=== PATIENT | male | born 1945 | race Two or more races ===

== ENCOUNTER 2018-06-11 08:45 | Observation (INO) | payer BC ==
[~2018-06-11] VITALS: Ht 172.7 cm; Wt 129.2 kg
[2018-06-11] VITALS (34 sets, daily range): BP systolic 71–129; BP diastolic 48–86; PULSE 84–98; RESP 15–29; Ht 172.7 cm; Wt 129.2 kg
[2018-06-11] MEDS: LACTATED RINGER'S 1,000 ML IV SCH ×2 (04:00→22:02)
[~2018-06-11 08:45] MED LIST: ACETAMINOPHEN 500 MG TAB PO ONE; CEFAZOLIN 1 GM/50 ML (PMX) 50 ML IVPB ONE; DEXAMETHASONE 4 MG/ML 1 ML INJ IV ONE; EPHEDrine 25 MG/5 ML SYG ONE; HIP PAIN COCKTAIL VANCO INJ SCH; LACTATED RINGER'S 1,000 ML IV* SCH; LANSOPRAZOLE 30 MG CAP PO ONE; ONDANSETRON 4 MG INJ IV ONE; PHENYLephrine 10 MG INJ ONE; TRANEXAMIC ACID 1GM/100ML(PMX) 100 ML INTRA-OP X1 IVPB ONE; TRANEXAMIC ACID 1GM/100ML(PMX) 100 ML PRE-OP X1 IVPB ONE; oxyCODONE (CR) 10 MG TAB [oxyCONTIN] PO ONE
[2018-06-11] MEDS ORDERED: SITA100T11 PO (09:22)
[2018-06-11] MEDS ORDERED: METF100010 PO (09:22)
[2018-06-11] MEDS ORDERED: EMPA25TA PO (09:22)
[2018-06-11] MEDS ORDERED: TRAM50TA PO (09:23)
[2018-06-11] MEDS ORDERED: APIX5TAB PO (09:23)
[2018-06-11] MEDS ORDERED: GLYB5TAB3 PO (09:24)
[2018-06-11] MEDS ORDERED: METO-448 PO (09:24)
[2018-06-11] MEDS ORDERED: ACETAMINOPHEN 1000MG/100ML IV 100 ML IVPB ONE (10:00)
--- NOTE | 2018-06-11 10:09 | HPN ---
Date/Time of Note Date/Time of Note DATE: 06/11/18 TIME: 10:09 Interval H&P Admission Note Pt. seen H&P reviewed: No system changes ZULEMA WATERS MD Jun 11, 2018 10:09
[2018-06-11] MEDS ORDERED: POLYMYXIN B 500000 UNIT INJ ONE (10:24)
--- NOTE | 2018-06-11 10:25 | PREAC ---
Date/Time of Note Date/Time of Note DATE: 06/11/18 TIME: 10:24 Anesthesia Eval and Record Evaluation Time Pre-Procedure Interview DATE: 06/11/18 TIME: 10:24 Age 72 Sex male NPO: 8 hrs Preoperative diagnosis R knee pain OA Planned procedure R knee replacement Past Medical History Past Medical History: Includes Cardio: HTN, Dyslipidemia Endo: Diabetes GI: Morbid obesity Surgery & Anesthesia Issues No known issue Meds Anticoagulation: No Beta Jeffry within 24 hr: No Reason Beta Jeffry not given: Pt. not on B-Jeffry Reported Medications Glyburide* (Glyburide*) 5 Mg Tablet, 10 MG PO BID, #60 TAB 06/11/18 Metoprolol Tartrate* (Lopressor*) 25 Mg Tab, 25 MG PO BID, #60 TAB 06/11/18 Apixaban* (Eliquis*) 5 Mg Tablet, 5 MG PO BID, TAB 06/11/18 Tramadol Hcl* (Ultram*) 50 Mg Tablet, 50 MG PO BID PRN for PAIN, TAB 06/11/18 Empagliflozin (Jardiance) 25 Mg Tablet, 25 MG PO DAILY, TAB 06/11/18 Sitagliptin* (Januvia*) 100 Mg Tablet, 100 MG PO DAILY, #30 TAB 06/11/18 Metformin Hcl* (Metformin Hcl*) 1,000 Mg Tablet, 1000 MG PO WITH BREAKFAST DINNE, #60 TAB 06/11/18 Current Medications Lactated Ringer's 1,000 ml @ 125 mls/hr Q8H IV* ; Start 06/11/18 at 06:00; Stop 06/11/18 at 13:59 Ropivacaine/ Morphine Sulfate/ Clonidine/ Epinephrine/ Ketorolac Tromethamine/ Vancomycin HCl/ Sodium Chloride INTRA-OP INJ ; Start 06/11/18 at 06:00 Meds reviewed: Yes Allergies Coded Allergies: No Known Drug Allergies (Unverified Allergy, Unknown, 06/11/18) Allergies Reviewed: Yes Labs/Studies Labs Reviewed: Reviewed by anesthesiologist test: N/A Studies: ECG Pre-procedure Exam Last vitals Vital Signs Date Temp Pulse Resp B/P (MAP) Pulse Ox O2 O2 Flow FiO2 Time Delivery Rate 06/11/18 97.8 94 16 129/79 98 Room Air 10:05 (96) Airway: Adequate mouth opening, Adequate thyromental dist Mallampati: Mallampati II Teeth: Normal Lung: Normal Heart: Normal ASA Physical Status ASA physical status: 3 Emergency: None Planned Anesthetic General/MAC: ETT Neuraxial: Spinal Planned Pain Management Sub-arachniod narcotics Pre-operative Attestations Prior to commencing anesthesia and surgery, the patient was re-evaluated, there was verification of: *The patient's identity *The results of appropriate recent lab work and preoperative vital signs *The above evaluation not changing prior to induction *Anesthetic plan, risk benefits, alternative and complications discussed with patient/family; questions answered; patient/family understands, accepts and wishes to proceed. KHALIDA SHEN Jun 11, 2018 10:25
[2018-06-11] MEDS ORDERED: ONDANSETRON 4 MG INJ IV PRN ×2 (10:30→17:00)
[2018-06-11] MEDS ORDERED: ALBUTEROL 0.083% (NEB) 2.5 MG/3 ML AMP HHN PRN (10:30)
[2018-06-11] MEDS ORDERED: DIPHENHYDRAMINE 50 MG INJ IV PRN (10:30)
[2018-06-11] MEDS ORDERED: FENTAnyl 50 MCG/ML VIAL IV PRN ×2 (10:30)
[2018-06-11] MEDS ORDERED: MEPERIDINE 25 MG INJ IV PRN (10:30)
[2018-06-11] MEDS ORDERED: METOCLOPRAMIDE 10 MG INJ IV PRN (10:30)
[2018-06-11] MEDS ORDERED: HYDROmorphONE 1 MG/5 ML IV SYRINGE IV PRN ×2 (10:30)
[2018-06-11] MEDS ORDERED: morphine SULFATE/PF (10 MG/10 ML) INJ ONE (10:32)
[2018-06-11] MEDS ORDERED: MIDAZOLAM 1 MG/ML 2 ML INJ ONE (10:32)
--- NOTE | 2018-06-11 12:11 | OPR ---
Date/Time of Note Date/Time of Note DATE: 06/11/18 TIME: 12:07 Operative Report Free Text/Dictation The patient was taken to the operative room. After induction of spinal anesthesia, he became hypotensive requiring pressors. He was in atrial fibrillation, with bigeminy. After additional pressors, he became hypotensive again. At this time it was decided by anesthesia, that he is not optimized medically. The case was canceled. Patient will be admitted, and taken to the telemetry unit for observation. I will consult the hospitalist, as well as cardiology. I spoke to the patient's family including both of his sons. ZULEMA WATERS MD Jun 11, 2018 12:11
--- NOTE | 2018-06-11 13:46 | PAC ---
Date/Time of Note Date/Time of Note DATE: 06/11/18 TIME: 13:41 Post-Anesthesia Notes Post-Anesthesia Note Last documented vital signs Vital Signs Date Temp Pulse Resp B/P (MAP) Pulse Ox O2 O2 Flow FiO2 Time Delivery Rate 06/11/18 84 21 99/60 (73) 95 Room Air 13:06 06/11/18 98.0 11:38 Activity: WNL Respiratory function: WNL Cardiovascular function: WNL Mental status: Baseline Pain reasonably controlled: Yes Hydration appropriate: Yes Nausea/Vomiting absent: Yes Comments Pt is currently doing well in PACU in sinus rythym. Surgery cancelled due to unstable Paroxysmal afib (newly diagnosed) with hypotension following a low dose spinal anesthetic requiring pressors.. Pt states that he was diagnosed by his primary or uniform maker 2 weeks ago but there is no record of this in his medical history by either the primary or uniform maker. Not known to what extent his afib is controlled. Plan will be for patient to be admitted and see a uniform maker in house before proceeding further. KHALIDA SHEN Jun 11, 2018 13:46
[2018-06-11] MEDS: NS + KCL 20 MEQ 1,000 ML IV SCH (16:44)
--- NOTE | 2018-06-11 16:53 | CONS ---
Assessment/Plan Assessment/Plan Assessment/Plan (Daily) 1. Hypotension likely secondary to arrhythmia Patient went into A. fib with bigeminy, currently stable Continue home Eliquis but hold beta-leesa secondary to hypotension Plan is for stress test this evening Possible DC home tomorrow if stable with plans for surgery in 2 weeks 2. Right knee arthritis Patient was scheduled for surgery today but will be postponed for 2 weeks 3. Diabetes Continue home metformin, sliding scale 4. Morbid obesity Lifestyle changes Consultation Date/Type/Reason Admit Date/Time Jun 11, 2018 at 08:45 Date/Time of Note DATE: 06/11/18 TIME: 16:49 Hx of Present Illness Patient is a 72-year-old male with history of morbid obesity, diabetes, recent diagnosis of A. fib and arthritis who was scheduled for an elective right knee replacement. Patient was up to have surgery when he was noted to become hypotensive requiring pressors. Patient was in A. fib with bigeminy and surgery was canceled. Tiana Aggarwal has already consulted cardiology and stress test is planned. Patient denies any dizziness or chest pain at this time. Patient reports recent diagnosis of A. fib 2 weeks ago that was found during preop evaluation the patient denies any history of palpitations or chest discomfort. Constitutional: no complaints, improved Eyes: no complaints ENT: no complaints Respiratory: no complaints Cardiovascular: no complaints Gastrointestinal: no complaints Genitourinary: no complaints Musculoskeletal: no complaints Skin: no complaints Neurologic: no complaints Endocrine: no complaints Lymphatic: no complaints Psychological: no complaints, nl mood/affect Immunologic: no complaints Past Medical History Diabetes, obesity, arthritis, A. fib Home Meds Reported Medications Glyburide* (Glyburide*) 5 Mg Tablet, 10 MG PO BID, #60 TAB 06/11/18 Metoprolol Tartrate* (Lopressor*) 25 Mg Tab, 25 MG PO BID, #60 TAB 06/11/18 Apixaban* (Eliquis*) 5 Mg Tablet, 5 MG PO BID, TAB 06/11/18 Tramadol Hcl* (Ultram*) 50 Mg Tablet, 50 MG PO BID PRN for PAIN, TAB 06/11/18 Empagliflozin (Jardiance) 25 Mg Tablet, 25 MG PO DAILY, TAB 06/11/18 Sitagliptin* (Januvia*) 100 Mg Tablet, 100 MG PO DAILY, #30 TAB 06/11/18 Metformin Hcl* (Metformin Hcl*) 1,000 Mg Tablet, 1000 MG PO WITH BREAKFAST DINNE, #60 TAB 06/11/18 Medications Current Medications Ropivacaine/ Morphine Sulfate/ Clonidine/ Epinephrine/ Ketorolac Tromethamine/ Vancomycin HCl/ Sodium Chloride INTRA-OP INJ ; Start 06/11/18 at 06:00 Lactated Ringer's 1,000 ml @ 100 mls/hr Q10H IV ; Start 06/11/18 at 12:02 Apixaban (Eliquis) 2.5 mg BID PO ; Start 06/11/18 at 21:00 Potassium Chloride/Sodium Chloride 1,000 ml @ 100 mls/hr Q10H IV ; Start 06/11/18 at 16:44; Status UNV IV Flush (NS 3 ml) 3 ml PER PROTOCOL IV ; Start 06/11/18 at 17:00; Status UNV Ondansetron HCl (Zofran Inj) 4 mg Q6H PRN IV NAUSEA/VOMITING; Start 06/11/18 at 17:00; Status UNV Acetaminophen (Tylenol Tab) 650 mg Q6H PRN PO .PAIN 1-3 OR TEMP; Start 06/11/18 at 17:00; Status UNV Acetaminophen/ Hydrocodone Bitart (Sonoita (5/325)) 1 tab Q6H PRN PO .MOD PAIN 4- 6; Start 06/11/18 at 17:00; Status UNV Morphine Sulfate (morphine) 2 mg Q4H PRN IV .SEVERE PAIN 7-10; Start 06/11/18 at 17:00; Status UNV Docusate Sodium (Colace) 100 mg Q12H PRN PO .CONSTIPATION; Start 06/11/18 at 17:00; Status UNV Zolpidem Tartrate (Ambien) 5 mg QHS PRN PO .INSOMNIA; Start 06/11/18 at 17:00; Status UNV Allergies: Coded Allergies: No Known Drug Allergies (Unverified Allergy, Unknown, 06/11/18) Past Surgical History Past Surgical Hx: no surgical history Family History Significant Family History: no pertinent family hx Social History Alcohol Use: rarely Smoking Status: Never smoker Drug Use: none Exam/Review of Systems Exam Vitals Vital Signs Date Temp Pulse Resp B/P (MAP) Pulse Ox O2 O2 Flow FiO2 Time Delivery Rate 06/11/18 86 19 100/66 94 Room Air 14:33 (77) 06/11/18 98.0 11:38 Constitutional: alert, oriented Respiratory: clear to auscultation Cardiovascular: irregular rhythm Gastrointestinal: soft; No distended Musculoskeletal: nl extremities to inspection Results Results 24hrs Laboratory Tests Test 06/11/18 09:33 06/11/18 13:04 Bedside Glucose 176 127 Medications Medication Current Medications Ropivacaine/ Morphine Sulfate/ Clonidine/ Epinephrine/ Ketorolac Tromethamine/ Vancomycin HCl/ Sodium Chloride INTRA-OP INJ ; Start 06/11/18 at 06:00 Lactated Ringer's 1,000 ml @ 100 mls/hr Q10H IV ; Start 06/11/18 at 12:02 Apixaban (Eliquis) 2.5 mg BID PO ; Start 06/11/18 at 21:00 Potassium Chloride/Sodium Chloride 1,000 ml @ 100 mls/hr Q10H IV ; Start 06/11/18 at 16:44; Status UNV IV Flush (NS 3 ml) 3 ml PER PROTOCOL IV ; Start 06/11/18 at 17:00; Status UNV Ondansetron HCl (Zofran Inj) 4 mg Q6H PRN IV NAUSEA/VOMITING; Start 06/11/18 at 17:00; Status UNV Acetaminophen (Tylenol Tab) 650 mg Q6H PRN PO .PAIN 1-3 OR TEMP; Start 06/11/18 at 17:00; Status UNV Acetaminophen/ Hydrocodone Bitart (Sonoita (5/325)) 1 tab Q6H PRN PO .MOD PAIN 4- 6; Start 06/11/18 at 17:00; Status UNV Morphine Sulfate (morphine) 2 mg Q4H PRN IV .SEVERE PAIN 7-10; Start 06/11/18 at 17:00; Status UNV Docusate Sodium (Colace) 100 mg Q12H PRN PO .CONSTIPATION; Start 06/11/18 at 17:00; Status UNV Zolpidem Tartrate (Ambien) 5 mg QHS PRN PO .INSOMNIA; Start 06/11/18 at 17:00; Status UNV SULAIMAN MOJICA Jun 11, 2018 16:53
[2018-06-11] MEDS ORDERED: HYDROCODONE/APAP (5/325) TAB PO PRN (17:00)
[2018-06-11] MEDS ORDERED: ACETAMINOPHEN 325 MG TAB PO PRN (17:00)
[2018-06-11] MEDS ORDERED: morphine 2 MG INJ IV PRN (17:00)
[2018-06-11] MEDS ORDERED: ZOLPIDEM 5 MG TAB PO PRN (17:00)
[2018-06-11] MEDS ORDERED: DOCUSATE SODIUM 100 MG CAP PO PRN (17:00)
[2018-06-11] MEDS ORDERED: NACL 0.9% 3 ML SYG IV SCH (17:00)
[2018-06-11] MEDS ORDERED: GLUCAGON 1 MG INJ IM PRN (17:30)
[2018-06-11] MEDS ORDERED: GLUCOSE GEL 15 GRAM TUBE PO PRN ×2 (17:30)
[2018-06-11] MEDS ORDERED: DEXTROSE 50% 50 ML SYRINGE IV PRN ×2 (17:30)
[2018-06-11] MEDS ORDERED: GLUCOSE GEL 15 GRAM TUBE BUCCAL PRN (17:30)
[2018-06-11] MEDS: metFORMIN 500 MG TAB PO SCH (18:00)
[2018-06-11] MEDS ORDERED: APIXABAN 5 MG TABLET PO SCH (21:00)
[2018-06-11] MEDS: INSULIN ASPART [NOVOLOG] 3 ML PEN SC SCH ×2 (21:00→23:29)
[2018-06-11] MEDS: APIXABAN 5 MG TABLET PO SCH (21:03)
[2018-06-11] MEDS: METOPROLOL 25 MG TAB PO SCH (21:03)
[2018-06-12] VITALS (8 sets, daily range): BP systolic 91–95; BP diastolic 51–56; PULSE 68–89; RESP 19–21
[2018-06-12] MEDS ORDERED: ACCU-CHEK XX SCH (02:00)
[2018-06-12] MEDS: NS + KCL 20 MEQ 1,000 ML IV SCH (02:44)
--- NOTE | 2018-06-12 07:07 | RADRPT ---
Echocardiogram Report Patient Name: NEREIDA MALCOLMPatient ID: [id number] : [id number] (72y 12m)Study Date: 06/11/2018 3:20:43 PM Gender: MAccession #: [id number] Tech: Jamal Kelley [facility] Location: [address] Ref.Physician: ARCELIA VEGA Height(Cm): BSA: Weight(Kg): Quality: Technically Difficult StudyAccount #: Procedures: Echocardiographic Report: Transthoracic echocardiogram with complete 2D, M-Mode, and doppler examination. Indications: Atrial Fibrillation. Measurements: 2D/M Mode Doppler Measurement Value Normal Range Measurement Value Normal Range LVIDd 2D 4.5 [ 4.2 - 5.8 ] cm AV Peak Inocencio 1.3 [ 100.0 - 170.0 ] cm/se c LVIDs 2D 2.8 [ 2.5 - 4.0 ] cm AV Peak PG 7.2 [ 2.0 - 9.0 ] mmHg FS 2D 37.0 LVOT Peak Inocencio 0.9 [ 70.0 - 110.0 ] cm/sec LVPWd 2D 1.0 [ 0.6 - 1.0 ] cm LVOT Peak PG 3.3 [ 2.0 - 6.0 ] mmHg IVSd 2D 1.4 [ 0.6 - 1.0 ] cm MV E Peak Inocencio 1.1 [ 60.0 - 130.0 ] cm/sec AoR Diam 2D 2.8 [ 2.6 - 3.4 ] cm MV E/A 1.2 [ 0.8 - 1.5 ] ratio EF 2D 67.4 [ 52.0 - 72.0 ] percent MV Decel Time 200 [ 104 - 258 ] msec LA Dimen 2D 4.4 [ 3.0 - 4.0 ] cm MV Decel Aiken 5 Lat E` Inocencio 0.1 [ 10.0 - 15.0 ] cm/sec Lateral E/E` 9.3 [ 1.0 - 2.0 ] ratio TR Peak Inocencio 1.2 [ 100.0 - 280.0 ] cm/se c TR Peak PG 5.3 mmHg Findings: Left Ventricle: Normal left ventricular systolic function. Normal left ventricular cavity size. Mild asymmetric septal hypertrophy. Ejection fraction is visually estimated at 55-60 %. Right Ventricle: Normal right ventricular size. Normal right ventricular systolic function. Left Atrium: There is mild enlargement of left atrium. Right Atrium: The right atrium is normal in size. Mitral Valve: Mild mitral leaflet calcification. Mild mitral annular calcification. Trace mitral regurgitation. Aortic Valve: No hemodynamically significant aortic stenosis by doppler. Aortic cusps appear mildly calcified. Tricuspid Valve: Normal appearance of the tricuspid valve. Estimated peak PA systolic pressure 10 mmHg. There is trace tricuspid regurgitation. Pericardium: Normal pericardium with no significant pericardial effusion. Aorta: Normal aortic root. IVC: Normal size and normal respiratory collapse consistent with normal right atrial pressure. Conclusions: There is mild enlargement of left atrium. Normal left ventricular systolic function. Normal left ventricular cavity size. Mild asymmetric septal hypertrophy. Ejection fraction is visually estimated at 55-60 %. Mild mitral leaflet calcification. Mild mitral annular calcification. Trace mitral regurgitation. No hemodynamically significant aortic stenosis by doppler. Aortic cusps appear mildly calcified. Normal appearance of the tricuspid valve. Estimated peak PA systolic pressure 10 mmHg. There is trace tricuspid regurgitation. Electronically Signed By: Arcelia Vega 2018-06-12 07:06:05 PDT
[2018-06-12] MEDS: metFORMIN 500 MG TAB PO SCH (07:53)
[2018-06-12] MEDS: LACTATED RINGER'S 1,000 ML IV SCH (07:54)
[2018-06-12] MEDS: INSULIN ASPART [NOVOLOG] 3 ML PEN SC SCH ×2 (07:54→11:50)
[2018-06-12] MEDS ORDERED: REGADENOSON 0.4 MG/5 ML SYG ONE (08:20)
--- NOTE | 2018-06-12 08:46 | CONS ---
Assessment/Plan Assessment/Plan Hospital Course (Demo Recall) Cardiovascular preop evaluation Paroxysmal atrial fibrillation and PVCs diabetes Hypertension Morbid obesity Likely sleep apnea Recommendations: Discussed with patient and his son extensively. We will start the patient on Multaq We will give off the beta-leesa to avoid hypotension Lexiscan so that will be done today DC planning this afternoon if the stress test is negative. Outpatient stress test to be scheduled later on Patient to follow-up with his regular machine package sealer Dr. Barrett next week Thank you ARCELIA DREW MD [facility] Consultation Date/Type/Reason Admit Date/Time Jun 11, 2018 at 08:45 Date of Consultation: Jun 12, 2018 Type of Consult Cardiology Reason for Consultation Hypotension. Cardiovascular preop evaluation. Atrial fibrillation. Requesting Provider: SULAIMAN MOJICA Date/Time of Note DATE: 06/12/18 TIME: 08:41 Hx of Present Illness Interventional cardiology consultation note (on behalf of ) Chief complaint: Knee arthritis Reason for consult: Hypotension after anesthesia. Atrial fibrillation arrhythmias PVCs History of present illness: Thank you for this referral. History was informed the patient discussion with his son who is a machine package sealer. Discussion with the physician staff. This is a Pleasant 72-year-old male with history of morbid obesity, diabetes, recent diagnosis of A. fib and arthritis who was scheduled for an elective right knee replacement. Patient was up to have surgery when he was noted to become hypotensive requiring pressors. Patient was in A. fib with bigeminy and surgery was canceled. patient denies any history of palpitations or chest discomfort. He is unaware of his atrial fibrillation. He said that before his knee he was able to walk 4 miles with no chest pain or pressure. Patient does have morbid obesity and according to the son he snores at nighttime although is getting better since he has lost a few pounds. Allergies: No known drug allergies Medications were reviewed as per medical reconciliation sheet Family history: No reported history of early coronary artery disease Social history: Non-smoker Past medical history: Diabetes hypertension dyslipidemia obesity osteoarthritis of the knee Past surgical history: Cataract surgery Review of system: Patient denies all others except for above-mentioned Past Medical History Home Meds Reported Medications Glyburide* (Glyburide*) 5 Mg Tablet, 10 MG PO BID, #60 TAB 06/11/18 Metoprolol Tartrate* (Lopressor*) 25 Mg Tab, 25 MG PO BID, #60 TAB 06/11/18 Apixaban* (Eliquis*) 5 Mg Tablet, 5 MG PO BID, TAB 06/11/18 Tramadol Hcl* (Ultram*) 50 Mg Tablet, 50 MG PO BID PRN for PAIN, TAB 06/11/18 Empagliflozin (Jardiance) 25 Mg Tablet, 25 MG PO DAILY, TAB 06/11/18 Sitagliptin* (Januvia*) 100 Mg Tablet, 100 MG PO DAILY, #30 TAB 06/11/18 Metformin Hcl* (Metformin Hcl*) 1,000 Mg Tablet, 1000 MG PO WITH BREAKFAST DINNE, #60 TAB 06/11/18 Medications Current Medications Ropivacaine/ Morphine Sulfate/ Clonidine/ Epinephrine/ Ketorolac Tromethamine/ Vancomycin HCl/ Sodium Chloride INTRA-OP INJ ; Start 06/11/18 at 06:00 Lactated Ringer's 1,000 ml @ 100 mls/hr Q10H IV ; Start 06/11/18 at 12:02 Potassium Chloride/Sodium Chloride 1,000 ml @ 100 mls/hr Q10H IV Last administered on 06/12/18at 02:44; Admin Dose 100 MLS/HR; Start 06/11/18 at 16:44 IV Flush (NS 3 ml) 3 ml PER PROTOCOL IV ; Start 06/11/18 at 17:00 Ondansetron HCl (Zofran Inj) 4 mg Q6H PRN IV NAUSEA/VOMITING; Start 06/11/18 at 17:00 Acetaminophen (Tylenol Tab) 650 mg Q6H PRN PO .PAIN 1-3 OR TEMP; Start 06/11/18 at 17:00 Acetaminophen/ Hydrocodone Bitart (Shirley (5/325)) 1 tab Q6H PRN PO .MOD PAIN 4- 6; Start 06/11/18 at 17:00 Morphine Sulfate (morphine) 2 mg Q4H PRN IV .SEVERE PAIN 7-10; Start 06/11/18 at 17:00 Docusate Sodium (Colace) 100 mg Q12H PRN PO .CONSTIPATION; Start 06/11/18 at 17:00 Zolpidem Tartrate (Ambien) 5 mg QHS PRN PO .INSOMNIA; Start 06/11/18 at 17:00 Apixaban (Eliquis) 5 mg BID PO Last administered on 06/11/18at 21:03; Admin Dose 5 MG; Start 06/11/18 at 21:00 Metformin HCl (Glucophage) 1,000 mg WITH BREAKFAST DINNE PO ; Start 06/11/18 at 18:00 Metoprolol Tartrate (Lopressor) 25 mg BID PO Last administered on 06/11/18at 21:03; Admin Dose 25 MG; Start 06/11/18 at 21:00 Diagnostic Test (Pha) (Accu-Chek) 1 ea 02 XX ; Start 06/12/18 at 02:00 Insulin Aspart (Novolog Insulin Pen) NOVOLOG *MILD* ALGORITHM WITH MEALS BEDTIME SC Last administered on 06/11/18at 23:29; Admin Dose 2 UNIT; Start 06/11/18 at 18:00 Miscellaneous Information 1 ea NOTE XX ; Start 06/11/18 at 17:30 Glucose (Glutose) 15 gm Q15M PRN PO DECREASED GLUCOSE; Start 06/11/18 at 17:30 Glucose (Glutose) 22.5 gm Q15M PRN PO DECREASED GLUCOSE; Start 06/11/18 at 17:30 Dextrose (D50w Syringe) 25 ml Q15M PRN IV DECREASED GLUCOSE; Start 06/11/18 at 17:30 Dextrose (D50w Syringe) 50 ml Q15M PRN IV DECREASED GLUCOSE; Start 06/11/18 at 17:30 Glucagon (Glucagen) 1 mg Q15M PRN IM DECREASED GLUCOSE; Start 06/11/18 at 17:30 Glucose (Glutose) 15 gm Q15M PRN BUCCAL DECREASED GLUCOSE; Start 06/11/18 at 17:30 Allergies: Coded Allergies: No Known Drug Allergies (Unverified Allergy, Unknown, 06/11/18) Past Surgical History Past Surgical Hx: no surgical history Social History Alcohol Use: rarely Smoking Status: Never smoker Drug Use: none Exam/Review of Systems Vital Signs Vitals Vital Signs Date Temp Pulse Resp B/P (MAP) Pulse Ox O2 O2 Flow FiO2 Time Delivery Rate 06/12/18 72 08:10 06/12/18 97.4 21 91/55 (67) 96 07:45 06/11/18 Room Air 17:33 Exam Exam General: Obese gentleman in no acute distress HEENT: NC/AT. pupils are equal. round. NECK: NO JVD. no stridor. CV: Regularly irregular systolic murmur; no gallop or rubs. PULM: no wheezing or rhonchi. GI: SOFT, NT, ND, no rebound or guarding Extremity: trace B/L LE edema. no clubbing. neuro: awake and alert, OX3. Psych: calm and pleasant rectal: deferred : normal Echocardiogram was personally reviewed and normal LV size and systolic function. Left atrial diameter was 4.4 cm Labs Result Diagram: 06/12/18 0551 06/12/18 0551 Results 24hrs Laboratory Tests Test 06/11/18 09:33 06/11/18 13:04 06/11/18 20:58 06/11/18 22:30 Bedside Glucose 176 127 261 H 259 H Test 06/12/18 02:28 06/12/18 05:51 06/12/18 07:46 Bedside Glucose 189 142 White Blood Count 10.0 Red Blood Count 4.71 Hemoglobin 13.0 L Hematocrit 40.7 L Mean Corpuscular 86.4 Volume Mean Corpuscular 27.6 L Hemoglobin Mean Corpuscular 31.9 L Hemoglobin Concent Red Cell 14.1 Distribution Width Platelet Count 215 Mean Platelet Volume 11.0 H Immature 0.700 H Granulocytes % Neutrophils % 72.2 Lymphocytes % 16.5 Monocytes % 9.9 Eosinophils % 0.5 Basophils % 0.2 Nucleated Red Blood 0.0 Cells % Immature 0.070 H Granulocytes # Neutrophils # 7.2 Lymphocytes # 1.7 Monocytes # 1.0 H Eosinophils # 0.1 Basophils # 0.0 Nucleated Red Blood 0.0 Cells # Sodium Level 138 Potassium Level 5.1 Chloride Level 104 Carbon Dioxide Level 26 Anion Gap 8 Blood Urea Nitrogen 19 Creatinine 0.83 Est Glomerular > 60 Filtrat Rate mL/min Glucose Level 169 Hemoglobin A1c 7.7 H Calcium Level 8.8 Phosphorus Level 3.3 Magnesium Level 2.0 Triglycerides Level 109 Cholesterol Level 125 LDL Cholesterol, 57 Calculated HDL Cholesterol 46 Cholesterol/HDL 2.7 Ratio Free Thyroxine Index 2.92 Thyroxine (T4) 8.1 Triiodothyronine 36.1 (T3) Uptake Medications Medications Current Medications Ropivacaine/ Morphine Sulfate/ Clonidine/ Epinephrine/ Ketorolac Tromethamine/ Vancomycin HCl/ Sodium Chloride INTRA-OP INJ ; Start 06/11/18 at 06:00 Lactated Ringer's 1,000 ml @ 100 mls/hr Q10H IV ; Start 06/11/18 at 12:02 Potassium Chloride/Sodium Chloride 1,000 ml @ 100 mls/hr Q10H IV Last administered on 06/12/18at 02:44; Admin Dose 100 MLS/HR; Start 06/11/18 at 16:44 IV Flush (NS 3 ml) 3 ml PER PROTOCOL IV ; Start 06/11/18 at 17:00 Ondansetron HCl (Zofran Inj) 4 mg Q6H PRN IV NAUSEA/VOMITING; Start 06/11/18 at 17:00 Acetaminophen (Tylenol Tab) 650 mg Q6H PRN PO .PAIN 1-3 OR TEMP; Start 06/11/18 at 17:00 Acetaminophen/ Hydrocodone Bitart (Shirley (5/325)) 1 tab Q6H PRN PO .MOD PAIN 4- 6; Start 06/11/18 at 17:00 Morphine Sulfate (morphine) 2 mg Q4H PRN IV .SEVERE PAIN 7-10; Start 06/11/18 at 17:00 Docusate Sodium (Colace) 100 mg Q12H PRN PO .CONSTIPATION; Start 06/11/18 at 17:00 Zolpidem Tartrate (Ambien) 5 mg QHS PRN PO .INSOMNIA; Start 06/11/18 at 17:00 Apixaban (Eliquis) 5 mg BID PO Last administered on 06/11/18at 21:03; Admin Dose 5 MG; Start 06/11/18 at 21:00 Metformin HCl (Glucophage) 1,000 mg WITH BREAKFAST DINNE PO ; Start 06/11/18 at 18:00 Metoprolol Tartrate (Lopressor) 25 mg BID PO Last administered on 06/11/18at 21:03; Admin Dose 25 MG; Start 06/11/18 at 21:00 Diagnostic Test (Pha) (Accu-Chek) 1 ea 02 XX ; Start 06/12/18 at 02:00 Insulin Aspart (Novolog Insulin Pen) NOVOLOG *MILD* ALGORITHM WITH MEALS BEDTIME SC Last administered on 06/11/18at 23:29; Admin Dose 2 UNIT; Start 06/11/18 at 18:00 Miscellaneous Information 1 ea NOTE XX ; Start 06/11/18 at 17:30 Glucose (Glutose) 15 gm Q15M PRN PO DECREASED GLUCOSE; Start 06/11/18 at 17:30 Glucose (Glutose) 22.5 gm Q15M PRN PO DECREASED GLUCOSE; Start 06/11/18 at 17:30 Dextrose (D50w Syringe) 25 ml Q15M PRN IV DECREASED GLUCOSE; Start 06/11/18 at 17:30 Dextrose (D50w Syringe) 50 ml Q15M PRN IV DECREASED GLUCOSE; Start 06/11/18 at 17:30 Glucagon (Glucagen) 1 mg Q15M PRN IM DECREASED GLUCOSE; Start 06/11/18 at 17:30 Glucose (Glutose) 15 gm Q15M PRN BUCCAL DECREASED GLUCOSE; Start 06/11/18 at 17:30 ARCELIA DREW MD Jun 12, 2018 08:46
[2018-06-12] MEDS ORDERED: DRONEDARONE HYDROCHLORIDE 400 MG TAB PO SCH (09:00)
[2018-06-12] MEDS: APIXABAN 5 MG TABLET PO SCH (10:06)
[2018-06-12] MEDS: METOPROLOL 25 MG TAB PO SCH (10:07)
[2018-06-12] MEDS ORDERED: DRON400T2 PO (11:45)
--- NOTE | 2018-06-12 11:46 | PDOCDIS ---
Discharge Instructions CONDITION [id number] Patient Condition: [id number] Good HOME CARE INSTRUCTIONS: [id number] Diet Instructions: [id number] Reduced Calorie [id number] Special Diet: [id number] DIABETIC ACTIVITY: [id number] Activity Restrictions: [id number] No Restrictions FOLLOW UP/APPOINTMENTS Follow-up Plan FOLLOW UP WITH YOUR PCP AND LEGAL PARAPROFESSIONAL DR YOUNG IN 1-2 WEEKS, FOLLOW UP WITH DR KOROMA OF [facility] SULAIMAN MOJICA Jun 12, 2018 11:46
--- NOTE | 2018-06-12 16:18 | DS ---
Date/Time of Note Date/Time of Note DATE: 06/12/18 TIME: 16:14 Discharge Summary Admission/Discharge Info Admit Date/Time Jun 11, 2018 at 08:45 Discharge Date/Time Jun 12, 2018 at 13:15 Discharge Diagnosis 1. Hypotension likely secondary to arrhythmia-resolved Patient went into A. fib with bigeminy, currently stable Continue home Eliquis but have discontinued beta-leesa and prescribed Multitak per cardiology recommendations Cardiology consultation appreciated, stress test shows nonreversible defect, patient cleared for DC per cardiology to follow-up with outpatient automatic operator Continue home Eliquis Thyroid panel was normal 2. Right knee arthritis Patient was scheduled for surgery yesterday but will be postponed until cardiac issues have resolved 3. Diabetes Continue home meds A1c 7.7 4. Morbid obesity Lifestyle changes Patient Condition: Good Hospital Course Patient is a 9-year-old male with history of morbid obesity, diabetes, arthritis who was admitted for an elective right knee replacement. Prior to surgery patient became hypotensive with A. fib and bigeminy and surgery was canceled. The patient was seen by cardiology and stress test was done which showed only a nonreversible defect, patient blood pressure did stabilize and patient was cleared for DC per cardiology. Recognition was to DC home metoprolol and DC with Multaq, patient to follow-up with outpatient automatic operator. On the day of discharge patient's vitals, labs and physical exam are stable. Home Meds Active Scripts Dronedarone Hydrochloride* (Multaq*) 400 Mg Tablet, 400 MG PO BID WITH MEALS, #60 TAB Prov:SULAIMAN MOJICA 06/12/18 Reported Medications Glyburide* (Glyburide*) 5 Mg Tablet, 10 MG PO BID, #60 TAB 06/11/18 Apixaban* (Eliquis*) 5 Mg Tablet, 5 MG PO BID, TAB 06/11/18 Tramadol Hcl* (Ultram*) 50 Mg Tablet, 50 MG PO BID PRN for PAIN, TAB 06/11/18 Empagliflozin (Jardiance) 25 Mg Tablet, 25 MG PO DAILY, TAB 06/11/18 Sitagliptin* (Januvia*) 100 Mg Tablet, 100 MG PO DAILY, #30 TAB 06/11/18 Metformin Hcl* (Metformin Hcl*) 1,000 Mg Tablet, 1000 MG PO WITH BREAKFAST DINNE, #60 TAB 06/11/18 Discontinued Reported Medications Metoprolol Tartrate* (Lopressor*) 25 Mg Tab, 25 MG PO BID, #60 TAB 06/11/18 Follow-up Plan FOLLOW UP WITH YOUR PCP AND FITNESS CONSULTANT DR YOUNG IN 1-2 WEEKS, FOLLOW UP WITH DR KOROMA OF [facility] Primary Care Provider Not On Staff Doctor Time spent on discharge: > 30 minutes SULAIMAN MOJICA Jun 12, 2018 16:18
== END 2018-06-12 13:15 | disposition home or self-care (01) ==
LOC: INTOOBSV 08:45 → REC 08:45 → EDBD 10:30 → 6WM 19:10
PROVIDERS: ADMIT Orthopaedic Surgery Adult Reconstructive Orthopaedic Surgery; ATTEND Orthopaedic Surgery Adult Reconstructive Orthopaedic Surgery
DX: I95.9 Hypotension, unspecified (principal); I48.0 Paroxysmal atrial fibrillation; I49.3 Ventricular premature depolarization; M17.11 Unilateral primary osteoarthritis, right knee; Z53.8 Procedure and treatment not carried out for other reasons; E11.9 Type 2 diabetes mellitus without complications; Z79.84 Long term (current) use of oral hypoglycemic drugs; E66.01 Morbid (severe) obesity due to excess calories; Z68.41 Body mass index [BMI] 40.0-44.9, adult; Z79.01 Long term (current) use of anticoagulants
CPT/HCPCS: 78452; 80048; 80061; 82962; 83036; 83735; 84100; 84436; 84479; 85025; 86850; 86900; 86901; 93017; 93306; A9500; A9505; C1713; J0131; J0690; J1100; J1815; J2250; J2274; J2370; J2405; J2785; J3480; J7120; Z7500; Z7512; Z7610; 99217; G0378